=== PATIENT | female | born 1945 | race Caucasian/White ===

== ENCOUNTER 2017-03-06 14:53 | Outpatient (CLI) | payer MEDICARE, OTHER ==
[~2017-03-06] VITALS: Ht 167.6 cm; Wt 52.6 kg
[2017-03-06 15:01] VITALS: BP 175/87
[2017-03-06 15:37] LABS: BASOPHILS % (AUTO) 1 % (0-10); EOSINOPHILS # (AUTO) 0.1 10^3/uL (0.0-0.3); EOSINOPHILS % (AUTO) 2 % (0-10); LYMPHOCYTES # (AUTO) 2.1 X 10^3 (1.0-4.0); LYMPHOCYTES % (AUTO) 36 % (12-44); MEAN CORPUSCULAR HEMOGLOBIN 29 PG (25-34); MEAN CORPUSCULAR HGB CONC 32 G/DL (32-36); MEAN CORPUSCULAR VOLUME 91 FL (80-99); MONOCYTES # (AUTO) 0.6 X 10^3 (0.0-1.0); MONOCYTES % (AUTO) 11 % (0-12); NEUTROPHILS % (AUTO) 51 % (42-75); PLATELET COUNT 296 10^3/uL (130-400); RED BLOOD COUNT 4.34 10^6/uL (4.35-5.85); RED CELL DISTRIBUTION WIDTH 12.8 % (10.0-14.5); WHITE BLOOD COUNT 5.8 10^3/uL (4.3-11.0)
[2017-03-06] MEDS ORDERED: VALS80TA30 PO (15:47)
[2017-03-06] MEDS ORDERED: RANI150T15 PO (15:47)
[2017-03-06] MEDS ORDERED: DORZ1DRO6 OU (15:47)
[2017-03-06 15:53] LABS: CALCIUM 9.6 MG/DL (8.5-10.1); CREATININE SERUM 1.08 MG/DL (0.60-1.30); POTASSIUM 4.1 MMOL/L (3.6-5.0)
[2017-03-06] MEDS ORDERED: AMLO2.5T PO (15:56)
--- NOTE | 2017-03-06 18:44 | Diagnostic Imaging Report ---
INDICATION: Evaluation prior to soft tissue scalp surgery. TECHNIQUE: Two-view chest 3:54 p.m. CORRELATION STUDY: None. FINDINGS: The heart size, mediastinal configuration and pulmonary vasculature are within normal limits. Lung vides are hyperinflated. Blunting of the costophrenic angles may reflect trace pleural effusions. No infiltrate. Visualized osseous structures are unremarkable. IMPRESSION: 1. Hyperinflated lung vides, likely changes of COPD. Trace pleural effusions. No infiltrates. Dictated by: Dictated on workstation # [id number]
== END 2017-03-06 15:35 | disposition home or self-care (01) ==
LOC: PREOP 14:53
PROVIDERS: ATTEND Otolaryngology Otolaryngology/Facial Plastic Surgery
DX: Z01.812 Encounter for preprocedural laboratory examination (principal); Z01.811 Encounter for preprocedural respiratory examination; L98.9 Disorder of the skin and subcutaneous tissue, unspecified
CPT/HCPCS: 36415; 71020; 80048; 85025; 87081; 93005

== ENCOUNTER 2017-03-08 07:15 | Day surgery (SDC) | payer MEDICARE, OTHER ==
[~2017-03-08] VITALS: Ht 167.6 cm; Wt 52.6 kg
[~2017-03-08 07:15] MED LIST: AMLO2.5T PO; DORZ1DRO6 OU; RANI150T15 PO; VALS80TA30 PO
[2017-03-08] MEDS ORDERED: LACTATED RINGERS 1,000 ML IV PRN (07:22)
--- OUTSIDE RECORDS SUMMARY | 2017-03-08 07:23 | XMS REPORT | Continuity of Care Document ---
Author Author [facility] Organization [facility] Address Unknown Phone Unavailable Allergies Medications Problems Date Dx Coded Attending Type Code Diagnosis Diagnosed By 02/10/2015 Ot V74.8 02/10/2015 EDGARDO HUDDLESTON, MICHELLE Jeronimo Ot V76.12 02/12/2015 NICA NETTLES LINE PILOT Ot 782.4 02/12/2015 NICA NETTLES LINE PILOT Ot 787.91 02/12/2015 NICA NETTLES B LINE PILOT Ot 789.00 03/03/2015 NICA NETTLES LINE PILOT Ot 782.4 03/03/2015 NICA NETTLES B LINE PILOT Ot 787.91 03/03/2015 NICA NETTLES B LINE PILOT Ot 789.00 04/05/2015 YOON NICA B LINE PILOT Ot 782.4 04/05/2015 YOON NICA B LINE PILOT Ot 787.91 04/05/2015 NICA NETTLES B LINE PILOT Ot 789.00 06/02/2015 CHASITY MAX Ot Z12.31 03/03/2017 EDGARDO HUDDLESTON, MICHELLE Jeronimo Ot V76.12 OTH SCREEN MAMMO-MALIGN NEOPLASM OF GUILLERMO 03/03/2017 NICA NETTLES B LINE PILOT Ot 782.4 JAUNDICE NOS 03/03/2017 LEXI NETTLESA B LINE PILOT Ot 787.91 DIARRHEA 03/03/2017 NICA NETTLES B LINE PILOT Ot 789.00 ABDOMINAL PAIN, UNSPECIFIED SITE 03/03/2017 CHASITY MAX Ot Z12.31 ENCNTR SCREEN MAMMOGRAM FOR MALIGNANT NE Procedures Results Encounters ACCT No. Visit Date/Time Discharge Status Pt. Type Provider Facility Loc./Unit Complaint [id number] 05/11/2015 09:06:00 2014 23:59:59 CLS Outpatient CHASITY MAX [facility] RAD SCREENING [id number] 02/10/2015 07:52:00 2014 23:59:59 CLS Outpatient NICA NETTLES APRN [facility] RAD ABDOMINAL PAIN [id number] 11/07/2013 10:15:00 2013 23:59:59 CLS Outpatient EDGARDO HUDDLESTON, MICHELLE Jeronimo [facility] RAD SCREENING [id number] 03/08/2017 09:15:00 YUNI Delgado MD [facility] BCCA SCALP LESION [id number] 03/06/2017 15:00:00 YUNI Delgado MD [facility] PREOP RE-EXCISION SCALP LESION W/FS.POSS.SKIN GRAFT [id number] 02/28/2010 10:15:00 Document Registration
[2017-03-08] MEDS ORDERED: MIDAZOLAM 2 MG/2 ML (VERSED) VIAL IV ONE (07:30)
[2017-03-08] MEDS ORDERED: FAMOTIDINE 20MG/2ML IV (PEPCID) IV ONE (07:30)
[2017-03-08] MEDS ORDERED: proPOfol 200 MG/20 ML (DIPRIVAN) VIAL IV ONE (07:35)
[2017-03-08] MEDS ORDERED: fentaNYL INJECTION 100 MCG/2 ML AMP ONE (07:35)
[2017-03-08] MEDS ORDERED: DESFLURANE (SUPRANE) 15 ML INHAL SOLN ONE (07:35)
[2017-03-08] MEDS ORDERED: LIDOCAINE PF 2% 5 ML (XYLOCAINE) VIAL ONE (07:35)
[2017-03-08] MEDS ORDERED: ONDANSETRON 4 MG/2 ML (SDV) Z0FRAN ONE (07:35)
[2017-03-08] MEDS ORDERED: LACTATED RINGERS 1,000 ML IV ONE ×2 (07:36→09:42)
--- NOTE | 2017-03-08 07:36 | Progress Note-Pre Operative ---
Pre-Operative Progress Note H&P Reviewed The H&P was reviewed, patient examined and no changes noted. Date Seen by Provider: Mar 08, 2017 Time Seen by Provider: 07:30 Date H&P Reviewed: Mar 08, 2017 Time H&P Reviewed: 07:30 Pre-Operative Diagnosis: Basal CEll Ca of SCalp YUNI NIELSEN MD Mar 08, 2017 7:36 am
[2017-03-08 07:55] VITALS: BP 171/84
[2017-03-08] MEDS ORDERED: LIDOCAINE/EPI 1%-1:200,000 (XYLOCAINE) 30 ML VIAL ONE (08:39)
[2017-03-08] MEDS ORDERED: SEVOFLURANE (ULTANE) 15 ML INHAL SOLN ONE ×3 (08:45→09:41)
--- NOTE | 2017-03-08 09:23 | Progress Note-Post Operative ---
Post-Operative Progess Note Surgeon (s)/Mud Plant Operator (s) Surgeon YUNI NIELSEN MD Mud Plant Operator n/a Pre-Operative Diagnosis Basal CEll Ca of SCalp Post-Operative Diagnosis same Post-Op Procedure Note Date of Procedure: Mar 08, 2017 Name of Procedure Performed: Excision of bAsal cEll OF Scalp with INtermediate Repair Description & Findings Description and Findings: n/a Anesthesia Type lma Estimated Blood Loss minimal Packing none. Specimen(s) collected/removed Frozen section-margins clear YUIN NIELSEN MD Mar 08, 2017 9:23 am
[2017-03-08] MEDS ORDERED: ACETAMINOPHEN 325 MG TABLET/CAPLET (TYLENOL) PO PRN (09:30)
[2017-03-08] MEDS ORDERED: fentaNYL INJECTION 100 MCG/2 ML AMP IVP PRN (10:00)
[2017-03-08] MEDS ORDERED: ONDANSETRON 4 MG/2 ML (SDV) Z0FRAN IVP PRN (10:00)
[2017-03-08] MEDS ORDERED: morphine INJ 10 MG/ML 1ML (SYR OR VIAL) IVP PRN (10:00)
[2017-03-08 10:50] VITALS: BP 178/85
[2017-03-08] MEDS ORDERED: TRAM50TA2 PO (10:54)
[2017-03-08 11:20] VITALS: BP 172/90
[2017-03-08 11:22] VITALS: BP 172/90
[2017-03-08] MEDS ORDERED: MUPIROCIN 2% OINT 22 GM (BACTROBAN) TUBE TOP SCH (21:00)
== END 2017-03-08 11:22 | disposition home or self-care (01) ==
LOC: SDC 07:15
PROVIDERS: ATTEND Otolaryngology Otolaryngology/Facial Plastic Surgery
DX: C44.41 Basal cell carcinoma of skin of scalp and neck (principal); I10 Essential (primary) hypertension; J44.9 Chronic obstructive pulmonary disease, unspecified; Z79.899 Other long term (current) drug therapy